=== PATIENT | female | born 1960 | race Caucasian/White ===

== ENCOUNTER 2022-07-17 11:09 | Emergency (ER) | payer OTHER ==
[2022-07-17 11:46] LABS: RAPID STREP SCREEN Negative (Negative)
--- NOTE | 2022-07-17 11:53 | XRAY Report ---
PROCEDURE: Chest 1 View X-Ray INDICATIONS: Cough with yellow phlem TECHNIQUE: One view of the chest was acquired. COMPARISON: None FINDINGS: Surgical changes and devices: None. Lungs and pleura: No pleural effusions or pneumothorax. Lungs are clear. Mediastinum: Mediastinal contours appear normal. Heart size is normal. Bones and chest wall: No suspicious bony lesions. Overlying soft tissues appear unremarkable. IMPRESSION: No acute cardiopulmonary findings Reviewed by: Zelalem Dalal MD on 07/17/2022 10:51 AM RIKI Approved by: Zelalem Dalal MD on 07/17/2022 10:51 AM RIKI Station ID: [id number]
[2022-07-17 12:34] VITALS: BP 152/80
--- NOTE | 2022-07-17 12:42 | ED Physician Documentation ---
History of Present Illness - Stated complaint Stated Complaint: FEVER/COUGH - Chief complaint Chief Complaint: Resp - Additonal information Additional information: Patient is 62-year-old female presenting to the emergency department with cough, congestion, myalgias. Symptoms ongoing x3 days. [place]. No known sick contacts. Denies chest pain, shortness of breath, nausea, vomiting, diarrhea or constipation. Has not received any vaccinations for the novel coronavirus. Review of Systems Ten Systems: 10 systems reviewed and negative Constitutional: reports: Fever, Chills, Myalgias Eyes: denies: Loss of vision Ears: denies: Loss of hearing Nose: reports: Rhinorrhea / runny nose, Congestion Throat: denies: Dental pain / toothache Cardiac: denies: Chest pain / pressure Respiratory: denies: Dyspnea GI: denies: Abdominal Pain, Abdominal Swelling, Nausea, Vomiting : denies: Dysuria PD PAST MEDICAL HISTORY - Allergies Allergies/Adverse Reactions: Allergies Allergy/AdvReac Type Severity Reaction Status Date / Time amoxicillin [From Augmentin] Allergy Emesis Verified 07/17/22 11:20 ciprofloxacin [From Cipro] Allergy Emesis Verified 07/17/22 11:20 clavulanic acid Allergy Emesis Verified 07/17/22 11:20 [From Augmentin] vancomycin Allergy Edema Verified 07/17/22 11:20 PD ED PE NORMAL - Vitals Vital signs reviewed: Yes - General General: Alert and oriented X 3 - HEENT HEENT: Atraumatic - Neck Neck: Supple, no meningeal sign, No bony TTP, No adenopathy - Cardiac Cardiac: RRR, No gallop - Respiratory Respiratory: No respiratory distress, Clear bilaterally - Abdomen Abdomen: Normal bowel sounds, Non tender - Female Female : Deferred - Rectal Rectal: Deferred - Derm Derm: Normal color Results - Vitals Vitals: Vital Signs - 24 hr 07/17/22 07/17/22 11:15 12:33 Temperature 36.7 C 36.8 C Heart Rate 88 83 Respiratory 18 19 Rate Blood Pressure 160/84 H 152/80 H O2 Saturation 98 100 Oxygen O2 Source Room air - Labs Labs: Laboratory Tests 07/17/22 07/17/22 11:26 11:26 SARS-CoV-2 (PCR) DETECTED A Group A Strep Rapid Negative PD MEDICAL DECISION MAKING - ED course Complexity details: reviewed results, d/w patient ED course: Patient presents with 3-day history of cough, congestion, sore throat, subjective fevers. Afebrile, he medically stable on arrival to the emergency department. Clear aeration in all lung maxwell with no respiratory distress and adequate oxygen saturation on room air. COVID PCR positive. Strep group A antigen and chest x-ray negative for otherwise benign. Discussed diagnosis with patient as well as likely course. Discussed use of experimental antiviral medications. At this time she is not interested in these therapies. Will discharge with instructions for regular use of acetaminophen, Mucinex, Sudafed, oxymetazoline. Clear return precautions given prior to discharge. Departure - Departure Disposition: 01 Home, Self Care Clinical Impression: COVID-19 Instructions: ED Viral Syndrome Comments: Thank you for allowing us to care for you today at [facility]. Today in the emergency department you are diagnosed with the SARS COVID-19 virus. Please drink plenty fluids and get plenty of rest over the course of the next few days. [id number] medications such as Tylenol, Mucinex, Sudafed, and oxymetazoline are excellent for managing symptoms. The current CDC guidelines recommend quarantining for 5 full days since the onset of your symptoms. If on the fifth day you have been fever free for greater than 24 hours and all of your symptoms are improving you can leave quarantine however the CDC does recommend at least 10 days of social distancing and vigilant use of masks, gloves and handwashing as you may still be infectious during this time period. Please follow-up with your primary care doctor in order to make an appointment for medical recheck as soon as possible. If it anytime you have any new or worsening symptoms please not hesitate to return.
== END 2022-07-17 12:48 | disposition home or self-care (01) ==
LOC: ED 11:09
DX: U07.1 COVID-19 (principal)
CPT/HCPCS: 87070; 87430; 99282; 99284